=== PATIENT | female | born 2000 | race Caucasian/White ===

== ENCOUNTER 2019-03-11 20:39 | Emergency (ER) | payer OTHER ==
[2019-03-11 21:05] VITALS: BP 117/63
--- NOTE | 2019-03-11 21:19 | UC ---
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 [facility]. Pt was seen by student health services ~ 1100 today and finger was splinted. Pt then attended classes then came here for further evaluation - History Of Current Complaint Chief Complaint: UCUpperExtremity Stated Complaint: LEFT INDEX FINGER INJURY - W/C Time Seen by Provider: 03/11/19 20:49 Hx Obtained From: Patient Hx Last Menstrual Period: irregular ?: No Onset/Duration: Sudden Onset, Still Present Severity Initially: Moderate Severity Currently: Moderate Pain Intensity: 7 Character Of Pain: Dull, Aching, Throbbing Aggravating Factor(s): Movement Alleviating Factor(s): Rest Associated Signs And Symptoms: Positive: Swelling, Bruising Related History: Dominant Hand Right - Risk Factors Compartment Syndrome Risk Factors: Pain - Allergies/Home Medications Allergies/Adverse Reactions: Allergies Allergy/AdvReac Type Severity Reaction Status Date / Time amoxicillin Allergy Hives Verified 03/11/19 21:05 benzoyl peroxide Allergy Itching Verified 03/11/19 21:05 Home Medications: Home Medications Norethindr/Eth Estradiol(Nf) [Lo Loestrin Fe (NF)] 1 tab PO DAILY 03/11/19 [ History Confirmed 03/11/19] metroNIDAZOLE * [Flagyl] 500 mg PO Q8H 03/11/19 [History Confirmed 03/11/19] PMH/Surg Hx/FS Hx/Imm Hx Previously Healthy: Yes - Surgical History Surgical History: Yes Surgery Procedure, Year, and Place: wisdom teeth - Family History Known Family History: Positive: Cardiac Disease - Social History Occupation: Student Lives: Dormitory/Roommates Alcohol Use: Occasionally Substance Use Type: Cocaine, Marijuana Smoking Status (MU): Current Every Day Smoker Type: Cigars Have You Smoked in the Last Year: Yes - Immunization History Vaccination Up to Date: Yes Review of Systems All Other Systems Reviewed And Are Negative: Yes Constitutional: Positive: Negative Skin: Positive: Other - blood blister that has drained on distal left index phalanx Eyes: Positive: Negative ENT: Positive: Negative Respiratory: Positive: Negative Cardiovascular: Positive: Negative Gastrointestinal: Positive: Negative Genitourinary: Positive: Negative Motor: Positive: Decreased ROM - left index finger Neurovascular: Positive: Negative Musculoskeletal: Positive: Arthralgia, Myalgia Neurological: Positive: Negative Psychological: Positive: Negative Is Patient Immunocompromised?: No Physical Exam Triage Information Reviewed: Yes Appearance: Well-Appearing Vital Signs: Initial Vital Signs Temp 98.1 F 03/11/19 20:57 Pulse 93 03/11/19 20:57 Resp 16 03/11/19 20:57 BP 117/63 03/11/19 20:57 Pulse Ox 100 03/11/19 20:57 Vital Signs Reviewed: Yes Eye Exam: Normal ENT Exam: Normal Dental Exam: Normal Neck exam: Normal Respiratory: Positive: No respiratory distress Musculoskeletal: Positive: ROM Limited @ - left distal index finger Neurological Exam: Normal Psychological Exam: Normal Skin Exam: Other - blood blister left distal phalanx, anterior, that has opened and drained. Hand/Wrist Course/Dx - Differential Dx/Diagnosis Differential Diagnosis/HQI/PQRI: Contusion, Fracture Provider Diagnosis: Fracture of phalanx of left index finger Discharge - Sign-Out/Discharge Documenting (check all that apply): Patient Departure All imaging exams completed and their final reports reviewed: No - Discharge Plan Condition: Stable Disposition: HOME Patient Education Materials: Finger Fracture (ED), R.I.C.E. Treatment (ED), Safe Use of NSAIDs (ED) Referrals: [facility] [place] [facility] REFERR[facility] [Outside] Aureliano Mensah MD [Medical Doctor] - 1 Day No Primary Care Phys,NOPCP [Primary Care Provider] - - Billing Disposition and Condition Condition: STABLE Disposition: Home
--- NOTE | 2019-03-12 15:09 | UC ---
- Progress Note Progress Note: Radiologist reading of left second finger from March 11, 2019 comes back as probable nondisplaced fracture of the base of the distal phalanx of the second digit. The provider interpretation of that date is fracture of the finger therefore there is no discrepancy. Course/Dx - Diagnoses Provider Diagnoses: Fracture of phalanx of left index finger Discharge - Sign-Out/Discharge Documenting (check all that apply): Patient Departure All imaging exams completed and their final reports reviewed: Yes - Discharge Plan Condition: Stable Disposition: HOME Patient Education Materials: Finger Fracture (ED), R.I.C.E. Treatment (ED), Safe Use of NSAIDs (ED) Referrals: [facility] [place] [facility] REFERR[facility] [Outside] Aureliano Mensah MD [Medical Doctor] - 1 Day No Primary Care Phys,NOPCP [Primary Care Provider] - - Billing Disposition and Condition Condition: STABLE Disposition: Home
== END 2019-03-11 21:38 | disposition home or self-care (01) ==
LOC: UCCORT 20:39
DX: S62.661A Nondisplaced fracture of distal phalanx of left index finger, initial encounter for closed fracture (principal); W23.1XXA Caught, crushed, jammed, or pinched between stationary objects, initial encounter; Y92.238 Other place in hospital as the place of occurrence of the external cause; F17.210 Nicotine dependence, cigarettes, uncomplicated; Z88.0 Allergy status to penicillin; Z88.8 Allergy status to other drugs, medicaments and biological substances
CPT/HCPCS: 73140; 99201; G0463